=== PATIENT | female | born 1960 | race Caucasian/White ===

== ENCOUNTER 2021-10-29 14:03 | Emergency (ER) | payer OTHER ==
--- OUTSIDE RECORDS SUMMARY | 2021-10-29 14:08 | XMS REPORT | Continuity of Care Document ---
:1960 Author Organization [facility] t Address [address] [place] [address] Care Team Providers Name Role Phone GA_NUNN_Nunn_S Attending Clinician Unavailable Joycelyn Hernandez Attending Clinician [phone] Marielle Crane Attending Clinician Unavailable GA_NUNN_Nunn_S Admitting Clinician Unavailable Marielle Crane Admitting Clinician Unavailable Payers Payer Name Policy Type Policy Number Effective Date Expiration Date S [facility] [id number] Problems This patient has no known problems. Allergies, Adverse Reactions, Alerts This patient has no known allergies or adverse reactions. Medications This patient has no known medications. Procedures This patient has no known procedures. Encounters Start End Encounter Admission Attending Care Care Encounter Source Date/Time Date/Time Type Type Clinicians Facility Department ID 2021-01-21 2021-01-21 Outpatient GA_NUNN_Nun PRIV PRIV [id number] [facility] 10:59:00 10:59:00 n_S [id number] [facility] 2021-01-20 2021-01-20 Outpatient GA_NUNN_Nun PRIV PRIV [id number] [facility] 03:44:00 03:44:00 [facility]S [id number] [facility] 2021-01-20 2021-01-20 Outpatient [place], PRIV PRIV [id number] 00:00:00 00:00:00 Karin Hirsch [id number] 2020-09-28 2020-09-28 Outpatient DEVON Crane [facility] [id number] [facility] 18:14:00 18:14:00 Rashawn [id number] [facility] Results This patient has no known results.
[2021-10-29 15:55] LABS: Urine Blood Trace-intact (Negative); Urine Glucose Negative (Negative); Urine Protein Negative (Negative)
[2021-10-29] MEDS ORDERED: PHENAZOPYRIDINE 100MG TAB PO ONE (17:00)
[2021-10-29] MEDS ORDERED: MORPHINE 4 MG/ML SYR ONE (17:00)
[2021-10-29] MEDS ORDERED: ONDANSETRON 4 MG/2 ML VIAL ONE ×2 (17:00→19:52)
[2021-10-29 17:05] LABS: Absolute Lymphocytes (CBC) 1.8 K/uL (0.7-4.9); Lymphocytes % 25.8 % (15.3-44.8); MPV 6.8 fL (7.6-11.3)
--- NOTE | 2021-10-29 19:26 | EDPHYS ---
Physician Documentation [facility] Name: Janette Torres Age: 60 yrs Sex: Female : 1960 Arrival Date: 10/29/2021 Time: 14:06 Bed 18 Private MD: ED Physician Edwardo Newman HPI: 10/29 17:59 This 60 yrs old Female presents to ER via Ambulatory with complaints of Urinary Problem.kdr 17:59 The patient presents with urinary symptoms, dysuria, frequency, urgency. Onset: The kdr symptoms/episode began/occurred gradually, 2 week(s) ago. Modifying factors: The symptoms are alleviated by nothing, the symptoms are aggravated by nothing. Historical: - Allergies: 14:41 Bactrim; ap3 14:41 Levaquin; ap3 14:41 Nitrofurantoin Macrocrystal; ap3 - Home Meds: 14:41 Zoloft 50 mg oral tab [Active]; Myrbetriq oral [Active]; rosuvastatin 10 mg oral cpSP ap3 [Active]; Albuterol Inhl [Active]; amlodipine oral [Active]; Nexium Oral [Active]; phenazopyridine 200 mg Oral tab [Active]; Xanax 0.25 mg Oral tab [Active]; - PMHx: 14:41 UTI; Anxiety; Hypertensive disorder; ap3 - Immunization history:: Client reports receiving the 2nd dose of the Covid vaccine, Flu vaccine is not up to date. - Social history:: Smoking status: Patient denies any tobacco usage or history of. Patient uses alcohol, only on a social basis. ROS: 19:23 Constitutional: Negative for fever, chills, and weight loss, Eyes: Negative for injury, kdr pain, redness, and discharge, ENT: Negative for injury, pain, and discharge, Neck: Negative for injury, pain, and swelling, Cardiovascular: Negative for chest pain, palpitations, and edema, Respiratory: Negative for shortness of breath, cough, wheezing, and pleuritic chest pain, Abdomen/GI: Negative for abdominal pain, nausea, vomiting, diarrhea, and constipation, Back: Negative for injury and pain, MS/Extremity: Negative for injury and deformity, Skin: Negative for injury, rash, and discoloration, Neuro: Negative for headache, weakness, numbness, tingling, and seizure activity. Psych: Negative for depression, anxiety, suicide ideation, homicidal ideation, and hallucinations, Allergy/Immunology: Negative for hives, rash, and allergies, Endocrine: Negative for neck swelling, polydipsia, polyuria, polyphagia, and marked weight changes, Hematologic/Lymphatic: Negative for swollen nodes, abnormal bleeding, and unusual bruising. 19:23 : Positive for urinary symptoms, urinary frequency, burning with urination, Negative for injury or acute deformity, urinary frequency, hematuria, flank pain, foul smelling urine, vaginal bleeding, vaginal discharge, vaginal itching, menstrual abnormality, missed period. Exam: 19:23 Constitutional: This is a well developed, well nourished patient who is awake, alert, kdr and in no acute distress. Head/Face: Normocephalic, atraumatic. Eyes: Pupils equal round and reactive to light, extra-ocular motions intact. Lids and lashes normal. Conjunctiva and sclera are non-icteric and not injected. Cornea within normal limits. Periorbital areas with no swelling, redness, or edema. Neck: Trachea midline, no thyromegaly or masses palpated, and no cervical lymphadenopathy. Supple, full range of motion without nuchal rigidity, or vertebral point tenderness. No Meningismus. Chest/axilla: Normal chest wall appearance and motion. Nontender with no deformity. No lesions are appreciated. Cardiovascular: Regular rate and rhythm with a normal S1 and S2. No gallops, murmurs, or rubs. Normal PMI, no JVD. No pulse deficits. Respiratory: Lungs have equal breath sounds bilaterally, clear to auscultation and percussion. No rales, rhonchi or wheezes noted. No increased work of breathing, no retractions or nasal flaring. Back: No spinal tenderness. No costovertebral tenderness. Full range of motion. Skin: Warm, dry with normal turgor. Normal color with no rashes, no lesions, and no evidence of cellulitis. MS/ Extremity: Pulses equal, no cyanosis. Neurovascular intact. Full, normal range of motion. Neuro: Awake and alert, GCS 15, oriented to person, place, time, and situation. Cranial nerves II-XII grossly intact. Motor strength 5/5 in all extremities. Sensory grossly intact. Cerebellar exam normal. Normal gait. Psych: Awake, alert, with orientation to person, place and time. Behavior, mood, and affect are within normal limits. 19:23 Abdomen/GI: Inspection: abdomen appears normal, obese Bowel sounds: active, Palpation: soft, mild abdominal tenderness, in the suprapubic area. Vital Signs: 14:39 BP 151 / 84; Pulse 81; Resp 17; Temp 97.6; Pulse Ox 98% on R/A; Weight 85.28 kg; Height ap3 5 ft. 4 in. (162.56 cm); 15:45 BP 128 / 80; Pulse 73; Resp 15; Pulse Ox 93% ; Pain 7/10; eo2 17:09 BP 129 / 70; Pulse 75; Resp 15; Pulse Ox 97% ; Pain 8/10; eo2 18:00 BP 127 / 69; Pulse 65; Resp 17; Pulse Ox 95% ; Pain 4/10; eo2 14:39 Body Mass Index 32.27 (85.28 kg, 162.56 cm) ap3 MDM: 19:23 Data reviewed: vital signs, nurses notes, lab test result(s), radiologic studies. kdr Counseling: I had a detailed discussion with the patient and/or guardian regarding: the historical points, exam findings, and any diagnostic results supporting the discharge/admit diagnosis, lab results, radiology results, the need for outpatient follow up. 19:25 Patient medically screened. [facility] 10/29 14:57 Order name: Urine Culture [facility] 10/29 15:55 Order name: Urine Dipstick-Ancillary; Complete Time: 16:18 [facility] 10/29 16:19 Order name: CBC with Diff [facility] 10/29 16:19 Order name: Chem 7 [facility] 10/29 16:20 Order name: CBC with Automated Diff; Complete Time: 17:56 [facility] 10/29 16:20 Order name: Basic Metabolic Panel; Complete Time: 17:56 [facility] 10/29 14:57 Order name: Urine Dipstick-Ancillary (obtain specimen); Complete Time: 16:05 [facility] Administered Medications: 17:09 Drug: Pyridium (phenazopyridine) 200 mg Route: PO; eo2 18:09 Follow up: Response: No adverse reaction eo2 17:09 Drug: morphine 4 mg Route: IVP; Site: right antecubital; eo2 18:09 Follow up: Response: No adverse reaction; Pain is decreased eo2 17:09 Drug: Zofran (Ondansetron) 4 mg Route: IVP; Site: right antecubital; eo2 18:09 Follow up: Response: No adverse reaction; Nausea is decreased eo2 20:09 Drug: Zofran (Ondansetron) 4 mg Route: IVP; Site: right antecubital; ll3 20:27 Follow up: Response: No adverse reaction ll3 20:09 Drug: Pepcid (famotidine) 20 mg Route: PO; ll3 20:27 Follow up: Response: No adverse reaction ll3 20:10 Drug: Cipro (ciprofloxacin) 500 mg Route: PO; ll3 20:28 Follow up: Response: No adverse reaction ll3 20:10 Drug: Flagyl (metroNIDAZOLE) 500 mg Route: PO; ll3 20:28 Follow up: Response: No adverse reaction ll3 Disposition Summary: 10/29/21 19:25 Discharge Ordered Location: Home kdr Problem: an ongoing problem kdr Symptoms: have improved kdr Condition: Stable kdr Diagnosis - Dysuria kdr - Acute cystitis kdr - Cystitis, unspecified with hematuria kdr Followup: kdr - With: Michael Everett MD - When: 2 - 3 days - Reason: If symptoms return, Further diagnostic work-up, Recheck today's complaints, Continuance of care, Re-evaluation by your physician Discharge Instructions: - Discharge Summary Sheet kdr - Dysuria kdr - Urinary Tract Infection, Adult kdr - Interstitial Cystitis kdr Forms: - Medication Reconciliation Form kdr - Thank You Letter kdr - Antibiotic Education kdr Prescriptions: - ondansetron 4 mg Oral tablet,disintegrating - place 2 tablet by TRANSLINGUAL route every 8 hours As needed; 20 tablet; kdr Refills: 0, Product Selection Permitted - Flagyl 500 mg Oral Tablet - take 1 tablet by ORAL route every 6 hours for 10 days; 40 tablet; Refills: 0, kdr Product Selection Permitted - Cipro 500 mg Oral Tablet - take 1 tablet by ORAL route every 12 hours for 7 days; 14 tablet; Refills: 0, kdr Product Selection Permitted - Fluconazole 150 mg Oral Tablet - take 1 tablet by ORAL route once daily As needed; 12 tablet; Refills: 0, kdr Product Selection Permitted - Tylenol-Codeine #3 300 mg-30 mg Oral - take 1 tablet by ORAL route every 4-6 hours As needed; 12 tablet; Refills: 0, kdr Product Selection Permitted Signatures: Dispatcher [employer] Edwardo Garcia MD MD kdr Prokisch, Amanda RN RN ap3 Stevie Carey RN RN ll3 Jordana Conner RN RN eo2
--- NOTE | 2021-10-29 19:26 | ER ---
Nurse's Notes [facility] Name: Janette Torres Age: 60 yrs Sex: Female : 1960 Arrival Date: 10/29/2021 Time: 14:06 Bed 18 Private MD: Diagnosis: Dysuria;Acute cystitis;Cystitis, unspecified with hematuria Presentation: 10/29 14:39 Chief complaint: Patient states: she has been seen by multiple facilities for a UTI, ap3 however it keeps coming back. Patient reports urinary frequency and pain with urination. Coronavirus screen: At this time, the client does not indicate any symptoms associated with coronavirus-19. Ebola Screen: No symptoms or risks identified at this time. Initial Sepsis Screen: Does the patient meet any 2 criteria? No. Patient's initial sepsis screen is negative. Does the patient have a suspected source of infection? No. Patient's initial sepsis screen is negative. Risk Assessment: Do you want to hurt yourself or someone else? Patient reports no desire to harm self or others. Onset of symptoms was October 11, 2021. 14:39 Method Of Arrival: Ambulatory ap3 14:39 Acuity: TAMIR 3 ap3 Triage Assessment: 14:45 General: Appears uncomfortable, Behavior is calm, cooperative, appropriate for age. ap3 Pain: Complains of pain in meatus and upper labia Aggravated by urination. Neuro: Level of Consciousness is awake, alert, obeys commands, Oriented to person, place, time, situation, Appropriate for age. Respiratory: Airway is patent Respiratory effort is even, unlabored. : Reports burning with urination, pain with urination, urgency, urinary frequency. Historical: - Allergies: 14:41 Bactrim; ap3 14:41 Levaquin; ap3 14:41 Nitrofurantoin Macrocrystal; ap3 - Home Meds: 14:41 Zoloft 50 mg oral tab [Active]; Myrbetriq oral [Active]; rosuvastatin 10 mg oral cpSP ap3 [Active]; Albuterol Inhl [Active]; amlodipine oral [Active]; Nexium Oral [Active]; phenazopyridine 200 mg Oral tab [Active]; Xanax 0.25 mg Oral tab [Active]; - PMHx: 14:41 UTI; Anxiety; Hypertensive disorder; ap3 - Immunization history:: Client reports receiving the 2nd dose of the Covid vaccine, Flu vaccine is not up to date. - Social history:: Smoking status: Patient denies any tobacco usage or history of. Patient uses alcohol, only on a social basis. Screenin:45 Abuse screen: Denies threats or abuse. Nutritional screening: No deficits noted. ap3 Tuberculosis screening: No symptoms or risk factors identified. 16:04 Fall Risk None identified. eo2 Assessment: 16:00 General: Appears in no apparent distress. Behavior is calm, cooperative. Neuro: Level eo2 of Consciousness is awake, alert, obeys commands, Oriented to person, place, time, Denies dizziness, headache. Cardiovascular: Denies chest pain, shortness of breath, Heart tones S1 S2. Respiratory: Airway is patent Trachea midline Respiratory effort is even, unlabored, Respiratory pattern is regular, symmetrical, Breath sounds are clear bilaterally. Denies shortness of breath. GI: Patient currently denies diarrhea, nausea, vomiting. : Reports burning with urination, since X 2.5 weeks, reports she's used 2 different abx, symptoms have not improved, pt reports "my urethra feels like it's on fire". Vital Signs: 14:39 BP 151 / 84; Pulse 81; Resp 17; Temp 97.6; Pulse Ox 98% on R/A; Weight 85.28 kg; Height ap3 5 ft. 4 in. (162.56 cm); 15:45 BP 128 / 80; Pulse 73; Resp 15; Pulse Ox 93% ; Pain 7/10; eo2 17:09 BP 129 / 70; Pulse 75; Resp 15; Pulse Ox 97% ; Pain 8/10; eo2 18:00 BP 127 / 69; Pulse 65; Resp 17; Pulse Ox 95% ; Pain 4/10; eo2 14:39 Body Mass Index 32.27 (85.28 kg, 162.56 cm) ap3 ED Course: 14:06 Patient arrived in ED. mr 14:13 Edwardo Newman MD is Attending Physician. kdr 14:40 Triage completed. ap3 14:46 Arm band placed on left wrist. ap3 15:25 Jordana Conner, SHAR is Primary Nurse. eo2 16:04 Patient has correct armband on for positive identification. eo2 16:04 No provider procedures requiring assistance completed. eo2 16:05 Urine Culture Sent. eo2 16:55 Initial lab(s) drawn, by nv, sent to lab. Inserted saline lock: 20 gauge in right jl7 antecubital area, using aseptic technique. Blood collected. 17:32 Chem 7 Sent. jl7 17:32 CBC with Diff Sent. jl7 19:24 Michael Everett MD is Referral Physician. kdr 19:33 Report given to Tiffanie YMLES. eo2 Administered Medications: 17:09 Drug: Pyridium (phenazopyridine) 200 mg Route: PO; eo2 18:09 Follow up: Response: No adverse reaction eo2 17:09 Drug: morphine 4 mg Route: IVP; Site: right antecubital; eo2 18:09 Follow up: Response: No adverse reaction; Pain is decreased eo2 17:09 Drug: Zofran (Ondansetron) 4 mg Route: IVP; Site: right antecubital; eo2 18:09 Follow up: Response: No adverse reaction; Nausea is decreased eo2 20:09 Drug: Zofran (Ondansetron) 4 mg Route: IVP; Site: right antecubital; ll3 20:27 Follow up: Response: No adverse reaction ll3 20:09 Drug: Pepcid (famotidine) 20 mg Route: PO; ll3 20:27 Follow up: Response: No adverse reaction ll3 20:10 Drug: Cipro (ciprofloxacin) 500 mg Route: PO; ll3 20:28 Follow up: Response: No adverse reaction ll3 20:10 Drug: Flagyl (metroNIDAZOLE) 500 mg Route: PO; ll3 20:28 Follow up: Response: No adverse reaction ll3 Outcome: 19:25 Discharge ordered by . kdr 20:28 Patient left the ED. ll3 Signatures: Edwardo Newman MD MD kdr Rivera, Mary PavonMehreen RN RN jl7 Pebbles Otero RN RN ap3 Loubet, Lynsea, RN RN ll3 Jordana Conner RN RN eo2
[2021-10-29] MEDS ORDERED: metroNIDAZOLE 500 MG TABLET ONE (19:51)
[2021-10-29] MEDS ORDERED: CIPROFLOXACIN HCL 500 MG TAB ONE (19:51)
[2021-10-29] MEDS ORDERED: FAMOTIDINE 20 MG/2 ML VIAL IV ONE (19:52)
[2021-10-29 20:46] VITALS: TEMP 97.6
[2021-10-29 20:52] VITALS: BP 127/69; O2SAT 95
== END 2021-10-29 20:28 | disposition home or self-care (01) ==
LOC: ER 14:03
DX: N30.01 Acute cystitis with hematuria (principal); I10 Essential (primary) hypertension; F41.9 Anxiety disorder, unspecified; Z88.1 Allergy status to other antibiotic agents; Z88.8 Allergy status to other drugs, medicaments and biological substances
CPT/HCPCS: 87088; 85025; 87086; 80048; 36415; 81003; 96375; 96374; 99283; J2405 ×2